=== PATIENT | female | born 1930 ===

== ENCOUNTER 2016-07-16 13:17 | Outpatient (RCR) | payer MEDICARE, OTHER | END 2016-08-12 | disposition home or self-care (01) | LOC: WCC 13:17 | DX: L89.622 Pressure ulcer of left heel, stage 2 (principal); L97.822 Non-pressure chronic ulcer of other part of left lower leg with fat layer exposed; F03.90 Unspecified dementia, unspecified severity, without behavioral disturbance, psychotic disturbance, mood disturbance, and anxiety; M19.90 Unspecified osteoarthritis, unspecified site | CPT/HCPCS: 11043; 97605 ==